=== PATIENT | male | born 2000 | race Two or more races ===

== ENCOUNTER 2020-09-30 15:47 | Emergency (ER) | payer OTHER ==
[2020-09-30 15:54] VITALS: BP 142/70
--- NOTE | 2020-09-30 16:35 | ER Document Report ---
ED General - General Chief Complaint: Arm Injury Stated Complaint: FALL/RIGHT SHOULDER PAIN Time Seen by Provider: 09/30/20 16:31 Mode of Arrival: Ambulatory Information source: Patient Notes: 20-year-old -[place] male coming in today with the right shoulder and right hand pain. He was standing up on a desk yesterday cleaning the top of a wall locker unit. When he fell his arm got stuck above his head and he felt a pulling and a popping sensation in his right shoulder. Also swelling in his right dorsal hand. Does not have any other injuries. - Related Data Allergies/Adverse Reactions: No Known Allergies Allergy (Verified 09/30/20 16:31) Home Medications: pulses intact, cap refill <3 seconds, sensations intact Past Medical History - Social History Smoking Status: Current Every Day Smoker Chew tobacco use (# tins/day): No Frequency of alcohol use: Occasional Drug Abuse: None Family History: None Review of Systems - Review of Systems Notes: Constitutional: No fevers. No chills. EENT: No eye redness. No eye pain. No ear pain. No sore throat. Cardiovascular: No chest pain. No palpitations. Respiratory: No cough. No shortness of breath. No respiratory distress. Gastrointestinal: No abdominal pain. No nausea, vomiting, or diarrhea. Genitourinary: Atraumatic. No lesions. No pain. No discharge. Musculoskeletal: Pain in right shoulder, pain in right hand Skin: No rash or lesions. Lymphatic: No swollen lymph nodes. Neurologic: No headache. No syncope. Psychiatric: No suicidal or homicidal ideation. Physical Exam - Vital signs Vitals: Temp Pulse Resp BP Pulse Ox 98.8 F 70 16 142/70 H 100 09/30/20 15:53 09/30/20 15:53 09/30/20 15:53 09/30/20 15:53 09/30/20 15:53 - Notes Notes: General: Well-developed, well-nourished. In no acute distress. Non-toxic appearing. Cardiac: Well-perfused. Regular rate and rhythm. No murmurs, rubs, or gallops. Pulmonary: No respiratory distress. No cyanosis. Bilateral lung fiels are clear to auscultation. Abdominal: Non-distended. Non-rigid. Bowels sounds are present in all four quadrants. No guarding or rebound. HEENT: Head is atraumatic. Conjunctivae not reddened. No tearing. PERRL. EOMI. Orbits atraumatic. No periorbital swelling or erythema. Oropharynx is without erythema, swelling, or exudates. Neck: Supple. No adenopathy. No meningismus. Dermatologic: Warm with good turgor. No rash. Atraumatic. Chest: Atraumatic. No chest wall tenderness to palpation. Musculoskeletal: Right upper extremity is examined. Diffuse proximal humeral tenderness right side. No deformities. Good range of motion. No crepitus appreciated. Tenderness to palpation of the right dorsal hand with mild soft tissue swelling. No bony deformity. Good range of motion of all digits. Good flexion and extension of the wrist good pronation supination of the forearm. Distal neuro vascular exam is intact Genitourinary: Examination deferred Neurologic: No gross neurologic deficits. Psychiatric: Normal mood. Course - Re-evaluation Re-evalutation: 09/30/20 17:45 X-rays of the right shoulder and right hand are negative. Given the history patient most likely has some soft tissue injury, possibly rotator cuff injury to the right shoulder. We will keep him in a sling. Put him on naproxen twice a day and refer to Ortho. - Vital Signs Vital signs: Temp Pulse Resp BP Pulse Ox 98.8 F 70 16 142/70 H 100 09/30/20 15:53 09/30/20 15:53 09/30/20 15:53 09/30/20 15:53 09/30/20 15:53 - Diagnostic Test Radiology reviewed: Reports reviewed Discharge - Discharge Clinical Impression: Right shoulder injury Qualifiers: Encounter type: initial encounter Qualified Code(s): S49.91XA - Unspecified injury of right shoulder and upper arm, initial encounter Hand injury Qualifiers: Encounter type: initial encounter Laterality: right Qualified Code(s): S69.91XA - Unspecified injury of right wrist, hand and finger(s), initial encounter Condition: Good Disposition: HOME, SELF-CARE Instructions: Shoulder Injury ([facility]) Additional Instructions: Take your arm out of the sling multiple times a day and put it through a full range of motion so that your shoulder does not freeze up or lock in 1 position. Naproxen sodium twice a day as needed for pain. You will likely need to see an orthopedist to have further evaluation of the soft tissues of your right shoulder. These do not appear on regular x-rays. Prescriptions: Naproxen 500 mg PO BID 10 Days #20 tablet Referrals: BELL SAUNDERS, [ACTIVE STAFF] - Follow up as needed
--- NOTE | 2020-09-30 17:00 | RADIOLOGY REPORT (SQ) ---
EXAM DESCRIPTION: SHOULDER RIGHT 2 OR MORE VIEWS IMAGES COMPLETED DATE/TIME: 09/30/2020 4:52 pm REASON FOR STUDY: injury COMPARISON: None. NUMBER OF VIEWS: Three views. TECHNIQUE: Internal rotation, external rotation, and Y view images acquired of the right shoulder. LIMITATIONS: None. FINDINGS: MINERALIZATION: Normal. BONES: No acute fracture. No worrisome bone lesions. JOINTS: No dislocation. VISUALIZED LUNGS AND RIBS: No pneumothorax. No rib fracture. SOFT TISSUES: No radiopaque foreign body. OTHER: No other significant finding. IMPRESSION: NEGATIVE STUDY OF THE RIGHT SHOULDER. NO RADIOGRAPHIC EVIDENCE OF ACUTE INJURY. TECHNICAL DOCUMENTATION: JOB ID: [id number] 2010 [employer]- All Rights Reserved Reading location - IP/workstation name: [email or web address]
--- NOTE | 2020-09-30 17:01 | RADIOLOGY REPORT (SQ) ---
EXAM DESCRIPTION: HAND RIGHT 3 VIEWS IMAGES COMPLETED DATE/TIME: 09/30/2020 4:52 pm REASON FOR STUDY: injury COMPARISON: None. EXAM PARAMETERS: NUMBER OF VIEWS: Three views. TECHNIQUE: AP, lateral and oblique radiographic images acquired of the right hand. LIMITATIONS: None. FINDINGS: MINERALIZATION: Normal. BONES: No acute fracture or dislocation. No worrisome bone lesions. JOINTS: No effusions. SOFT TISSUES: No soft tissue swelling. No foreign body. OTHER: No other significant finding. IMPRESSION: NEGATIVE STUDY OF THE RIGHT HAND. NO RADIOGRAPHIC EVIDENCE OF ACUTE INJURY. TECHNICAL DOCUMENTATION: JOB ID: [id number] 2010 [email or web address]- All Rights Reserved Reading location - IP/workstation name: [email or web address]
== END 2020-09-30 18:05 | disposition home or self-care (01) ==
LOC: ER 15:47
DX: S49.91XA Unspecified injury of right shoulder and upper arm, initial encounter (principal); S69.91XA Unspecified injury of right wrist, hand and finger(s), initial encounter; W08.XXXA Fall from other furniture, initial encounter; Y93.E9 Activity, other interior property and clothing maintenance
CPT/HCPCS: 99284